=== PATIENT | male | born 1975 | race African-American/Black ===

== ENCOUNTER 2017-12-14 13:53 | Emergency (ER) | payer SELFPAY ==
[~2017-12-14] VITALS: Ht 190.5 cm; Wt 75.0 kg
[2017-12-14 13:55] VITALS: BP 154/90; PULSE 65; RESP 12; TEMP 98.4; O2SAT 96
[2017-12-14] MEDS ORDERED: TETANUS/DIPHTHERIA TOXOID ADULT 0.5 ML VIAL IM ONE (14:15)
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
[2017-12-14] MEDS ORDERED: LIDOCAINE 1%/EPINEPHrine 1:100,000 SOLN 20 ML VIAL INFIL ONE (14:45)
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
[2017-12-14] MEDS ORDERED: IBUPROFEN 600 MG TAB PO ONE (15:30)
== END 2017-12-14 16:18 | disposition home or self-care (01) ==
LOC: NEPD 13:53
DX: S01.81XA Laceration without foreign body of other part of head, initial encounter (principal); M54.2 Cervicalgia; V86.99XA Unspecified occupant of other special all-terrain or other off-road motor vehicle injured in nontraffic accident, initial encounter; Z23 Encounter for immunization
CPT/HCPCS: 12011; 70450; 71045; 72125; 90471; 90714

== ENCOUNTER 2017-12-24 09:50 | Emergency (ER) | payer SELFPAY ==
[~2017-12-24] VITALS: Ht 190.5 cm; Wt 72.5 kg
[2017-12-24 09:54] VITALS: BP 125/62; PULSE 65; RESP 16; TEMP 97.7; O2SAT 99
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
== END 2017-12-24 10:42 | disposition home or self-care (01) ==
LOC: NEPD 09:50
DX: Z48.02 Encounter for removal of sutures (principal)
CPT/HCPCS: 99281